=== PATIENT | female | born 1970 | race Caucasian/White ===

== ENCOUNTER 2019-02-02 03:18 | Inpatient (IN) | payer MEDICAID ==
[2019-02-02 05:56] LABS: ADD MAN DIFF? NO
[2019-02-02 06:05] LABS: ABNORMAL IP MESSAGE 1; BASOPHIL # 0.1 10^3/ul (0.0-0.1); BASOPHILS % 0.5 % (0.0-2.0); EOSINOPHILS # 0.1 10^3/ul (0.0-0.5); EOSINOPHILS % 0.5 % (0.0-7.0); HEMATOCRIT 26.5 % (37.0-47.0); HEMOGLOBIN 7.6 g/dl (12.0-16.0); LYMPHOCYTES # 1.9 10^3/ul (0.8-2.9); LYMPHOCYTES % 15.3 % (15.0-51.0); MEAN CORPUSCULAR HGB CONC 28.7 g/dl (32.0-37.0); MEAN CORPUSCULAR VOLUME 80.1 fl (82.0-101.0); MEAN PLATELET VOLUME 10.7 fl (7.4-10.4); MONOCYTE # 0.6 10^3/ul (0.3-0.9); MONOCYTES % 4.6 % (0.0-11.0); NEUTROPHIL # 9.9 10^3/ul (1.6-7.5); NEUTROPHILS % 77.9 % (39.0-77.0); NUCLEATED RED BLOOD CELLS% 0.2 /100WBC (0.0-0.0); PLATELET COUNT 294 10^3/UL (140-415); RED BLOOD COUNT 3.31 10^6/ul (4.20-5.40); RED CELL DISTRIBUTION WIDTH 17.7 % (11.5-14.5)
[2019-02-02 06:05] LABS: WHITE BLOOD COUNT 12.7 10^3/ul (4.8-10.8)
[2019-02-02 06:37] LABS: ADD UMIC YES; POSITIVE DIFF @See below; UR AMORPHOUS CRYSTAL MANY /HPF (NONE SEEN); UR ASCORBIC ACID 20 mg/dL (NEGATIVE); UR BACTERIA MODERATE /HPF (NONE SEEN); UR BILIRUBIN (Dip) NEGATIVE (NEGATIVE); UR BLOOD (Dip) 3+ mg/dL (NEGATIVE); UR CLARITY TURBID (CLEAR); UR COLOR YELLOW (YELLOW); UR GLUCOSE (Dip) NEGATIVE (NEGATIVE); UR KETONES (Dip) NEGATIVE (NEGATIVE); UR LEUKOCYTE ESTERASE (Dip) NEGATIVE Leu/ul (NEGATIVE); UR MUCUS MODERATE /HPF (NONE SEEN); UR NITRITE (Dip) NEGATIVE (NEGATIVE); UR RBC > 182 /HPF (0-5); UR SPECIFIC GRAVITY (Dip) 1.027 (1.003-1.030); UR TOTAL PROTEIN (Dip) 1+ mg/dl (NEGATIVE); UR UROBILINOGEN (Dip) NEGATIVE (NEGATIVE); UR WBC 44 /HPF (0-5)
[2019-02-02] MEDS ORDERED: TRIMETHOBENZAMIDE 100 MG/ML VIAL IM (12:30)
[2019-02-02] MEDS ORDERED: IPRATROPIUM (NEB) 0.5 MG/2.5 ML AMP HHN (12:30)
[2019-02-02] MEDS ORDERED: HYDROmorphONE 1 MG/5 ML IV SYRINGE IV ×2 (12:30)
[2019-02-02] MEDS ORDERED: ALBUTEROL 0.083% (NEB) 2.5 MG/3 ML AMP HHN (12:30)
[2019-02-02] MEDS ORDERED: OXYCODONE/ACETAMINOPHEN (5/325) TAB PO ×2 (12:30)
[2019-02-02] MEDS ORDERED: MIDAZOLAM 1 MG/ML 2 ML INJ IV (12:30)
[2019-02-02] MEDS ORDERED: hydrALAzine 20 MG INJ IV (12:30)
[2019-02-02] MEDS ORDERED: DIPHENHYDRAMINE 50 MG INJ IV (12:30)
[2019-02-02] MEDS ORDERED: MEPERIDINE 25 MG INJ IV (12:30)
[2019-02-02] MEDS ORDERED: EPHEDrine 25 MG/5 ML SYG IV (12:30)
[2019-02-02] MEDS ORDERED: FENTAnyl 50 MCG/ML VIAL IV ×3 (12:30)
[2019-02-02] MEDS ORDERED: LABETALOL HCL 20MG INJ IV (12:30)
[2019-02-02] MEDS ORDERED: NEOSTIGMINE 3 MG/3 ML SYRINGE (12:57)
[2019-02-02] MEDS ORDERED: ROCURONIUM 50 MG INJ (12:57)
[2019-02-02] MEDS ORDERED: PROPOFOL 20 ML (12:57)
[2019-02-02] MEDS ORDERED: GLYCOPYRROLATE 0.4 MG INJ (12:57)
[2019-02-02] MEDS ORDERED: CEFAZOLIN 1 GM INJ (12:57)
[2019-02-02] MEDS ORDERED: ONDANSETRON 4 MG INJ (12:58)
[2019-02-02] MEDS ORDERED: DEXAMETHASONE 4 MG/ML 5 ML INJ (12:58)
[2019-02-02] MEDS ORDERED: FENTAnyl 50 MCG/ML VIAL (12:58)
[2019-02-02] MEDS ORDERED: MIDAZOLAM 1 MG/ML 2 ML INJ (12:58)
[2019-02-02] MEDS ORDERED: DESFLURANE 15 MIN (13:00)
[2019-02-02] MEDS ORDERED: SUCCINYLCHOLINE CHLORIDE 100 MG/5 ML SYG IV (13:00)
[2019-02-02 13:04] LABS: IMMEDIATE SPIN CROSSMATCH 1 2
[2019-02-02] MEDS: ONDANSETRON 4 MG INJ IV (14:01)
[2019-02-02] MEDS: HYDROmorphONE 1 MG/5 ML IV SYRINGE IV (14:02)
[2019-02-02 14:11] LABS: HEMATOCRIT 26.1 % (37.0-47.0); HEMOGLOBIN 7.5 g/dl (12.0-16.0)
[2019-02-02 16:58] LABS: HEMATOCRIT 26.9 % (37.0-47.0); HEMOGLOBIN 8.1 g/dl (12.0-16.0)
== END 2019-02-02 18:19 | disposition home or self-care (01) | DRG 743 ==
LOC: PP2 08:39 → FTE 03:18 → PP2 07:20
PROC: 0UB97ZZ Excision of Uterus, Via Natural or Artificial Opening (ICD-10-PCS; principal; 2019-02-02 13:00)
PROC: 0UDB7ZZ Extraction of Endometrium, Via Natural or Artificial Opening (ICD-10-PCS; 2019-02-02 13:00)
PROC: 30233N1 Transfusion of Nonautologous Red Blood Cells into Peripheral Vein, Percutaneous Approach (ICD-10-PCS; 2019-02-02 13:00)
DX: D25.9 Leiomyoma of uterus, unspecified (principal); N95.0 Postmenopausal bleeding; D64.9 Anemia, unspecified; E11.9 Type 2 diabetes mellitus without complications; E66.9 Obesity, unspecified; F17.200 Nicotine dependence, unspecified, uncomplicated; Z68.36 Body mass index [BMI] 36.0-36.9, adult
CPT/HCPCS: 36430; 76830; 76856; 81001; 81025; 85014; 85018; 85025; 86850; 86900; 86901; 86920; 88305; 88307; 99285-25